=== PATIENT | male | born 1965 | race Caucasian/White ===

== ENCOUNTER 2017-08-14 05:36 | Emergency (ER) | payer OTHER ==
[~2017-08-14] VITALS: Ht 188 cm; Wt 136.0 kg
[~2017-08-14 05:36] MED LIST: GABA300C3 PO; LISI-587 PO; METH750T2 PO; NAPR500 PO
[2017-08-14 05:42] VITALS: BP 190/95; PULSE 77; RESP 18; TEMP 97.8; O2SAT 18; O2SAT 95
[2017-08-14] MEDS ORDERED: BLOOD PRESSURE MEDS PO (06:35)
[2017-08-14 06:39] VITALS: BP 183/110; PULSE 72; RESP 20; O2SAT 98
[2017-08-14 06:41] LABS: BASOPHIL # 0.1 TH/MM3 (0-0.2); EOSINOPHIL # 0.4 TH/MM3 (0-0.4); EOSINOPHIL % 5.6 % (0.0-4.0); HEMATOCRIT 45.2 % (39.0-51.0); HEMOGLOBIN 14.5 GM/DL (13.0-17.0); LYMPH % 33.1 % (9.0-44.0); LYMPHOCYTE # 2.5 TH/MM3 (1.0-4.8); MEAN CELL VOLUME 92.4 FL (80.0-100.0); MEAN CORPUSCULAR HEMOGLOBIN 29.7 PG (27.0-34.0); MEAN CORPUSCULAR HGB CONC 32.2 % (32.0-36.0); MEAN PLATELET VOLUME 7.9 FL (7.0-11.0); MONO % 6.2 % (0.0-8.0); MONOCYTE # 0.5 TH/MM3 (0-0.9); NEUT % 53.1 % (16.0-70.0); PLATELET COUNT 249 TH/MM3 (150-450); RED BLOOD COUNT 4.89 MIL/MM3 (4.50-5.90); WHITE BLOOD COUNT 7.5 TH/MM3 (4.0-11.0)
--- NOTE | 2017-08-14 06:57 | RADRPT ---
EXAM DATE/TIME: 08/14/2017 06:39 [place] COMPARISON: CHEST SINGLE AP, March 04, 2015, 3:35. INDICATIONS : Cough, congestion, unable to to take a deep breath. MEDICAL HISTORY : Hypercholesterolemia. Hypertension Smoker. SURGICAL HISTORY : Umbilical hernia repair. ENCOUNTER: Initial ACUITY: 1 day PAIN SCORE: 0/10 LOCATION: chest FINDINGS: PA and lateral views of the chest demonstrate the lungs to be symmetrically aerated without evidence of mass, infiltrate or effusion. The cardiomediastinal contours are unremarkable. Osseous structure s are intact. CONCLUSION: No acute disease. Hansel Feliciano MD on August 14, 2017 at 6:53 Board Certified Radiologist. This report was verified electronically.
[2017-08-14 07:02] VITALS: BP 148/89; PULSE 69; RESP 18; O2SAT 93
[2017-08-14 07:06] LABS: CHLORIDE 105 MEQ/L (98-107); SODIUM (NA) 141 MEQ/L (136-145)
[2017-08-14 07:09] LABS: CALCIUM 8.5 MG/DL (8.5-10.1)
[2017-08-14 07:10] LABS: ALBUMIN 3.3 GM/DL (3.4-5.0); BLOOD UREA NITROGEN 11 MG/DL (7-18); GLUCOSE,RANDOM 106 MG/DL (74-106); LIPASE 204 U/L (73-393)
[2017-08-14 07:12] LABS: ALT (GPT) 28 U/L (12-78); AST (GOT) 18 U/L (15-37)
[2017-08-14 07:13] LABS: CREATININE 0.66 MG/DL (0.60-1.30); GLOMERULAR FILTRATION RATE 128 ML/MIN (>89)
[2017-08-14 07:14] LABS: TOTAL BILIRUBIN ADULT 0.3 MG/DL (0.2-1.0); TOTAL PROTEIN 7.1 GM/DL (6.4-8.2)
[2017-08-14 07:15] LABS: ALKALINE PHOSPHATASE 81 U/L (45-117)
[2017-08-14] MEDS ORDERED: RESP: ALBUTEROL 2.5 MG/IPRATROPIUM 0.5 MG NEB (SCH) NEB ONE (07:15)
[2017-08-14 07:18] LABS: TROPONIN I LESS THAN 0.02 NG/ML (0.02-0.05)
--- NOTE | 2017-08-14 07:18 | PD ---
HPI Chief Complaint: Respiratory Symptoms Time Seen by Provider: 07:10 Travel History International Travel<30 days: No Contact w/Intl Traveler<30days: No Traveled to known affect area: No History of Present Illness HPI 51-year-old male presents stating he woke up this morning at 5 AM with a stuffy nose and cough. He states this made it hard for him to breathe through his nose. He states that he has no other concurrent complaints including fever, chest pain, shortness of breath or other acute concerns. He denies any sick contacts that he is aware of. Quality is stuffy nose. Severity is limited to nasal congestion and cough. Duration is couple of hours. PFSH Past Medical History Depression: Yes Heart Rhythm Problems: No Cancer: No Cardiac Catheterization: No Cardiovascular Problems: Yes High Cholesterol: Yes Congestive Heart Failure: No Diabetes: No Diminished Hearing: No Glaucoma: No Hepatitis: No Hiatal Hernia: No Hypertension: Yes Inguinal Hernia: Yes (UMBILICAL WITH MESH) Respiratory: No Immunizations Current: Yes Thyroid Disease: No Tetanus Vaccination: Unknown Influenza Vaccination: No Past Surgical History Abdominal Surgery: Yes (Hernia w/ mesh) Cardiac Surgery: No Coronary Artery Bypass Graft: No Ear Surgery: No Endocrine Surgery: No Eye Surgery: No Genitourinary Surgery: No Gynecologic Surgery: No Oral Surgery: No Pacemaker: No Thoracic Surgery: No Other Surgery: Yes Social History Alcohol Use: No Tobacco Use: Yes (1.5 PPD) Substance Use: No Allergies-Medications (Allergen,Severity, Reaction): Coded Allergies: No Known Allergies (Verified Adverse Reaction, Unknown, 08/14/17) Reported Meds & Prescriptions Reported Meds & Active Scripts Active Zithromax Z-[place] (Azithromycin) 250 Mg Dspk 250 Mg PO DIRECTED 500 MG (2 tabs) day 1, then 1 tab days 2-5. Ventolin Hfa 18 GM Inh (Albuterol Sulfate) 90 Mcg/Act Aer 2 Puff INH Q4H PRN Prednisone 50 Mg Tab 50 Mg PO DAILY 5 Days Reported [Blood Pressure Meds] PO DAILY Review of Systems Except as stated in HPI: all other systems reviewed are Neg Physical Exam Narrative General: No apparent distress, well appearing ENT: Posterior oropharyngx clear without exudate or erythema, external auditory canals are normal. Bilateral TM clear, rhinorrhea Neck: Neck is supple, no meningeal signs, trachea is midline Cardiovascular: Regular rate and rhythm Lungs: No increased respiratory effort noted, CTA bilaterally Abdomen: Soft, NT, ND, no rebound or guarding Back: No step-offs, midline spine nontender, no CVA tenderness Extremities: No edema, no pain with rom of all joints Neuro: Awake, motor and sensation grossly intact, normal speech Data Data Last Documented VS Vital Signs Date Time Temp Pulse Resp B/P (MAP) Pulse Ox O2 Delivery O2 Flow Rate FiO2 08/14/17 08:09 08/14/17 07:45 64 18 96 Room Air 08/14/17 05:42 97.8 Orders Orders Electrocardiogram (08/14/17 06:06) Complete Blood Count With Diff (08/14/17 06:06) Comprehensive Metabolic Panel (08/14/17 06:06) Troponin I (08/14/17 06:06) Lipase (08/14/17 06:06) Chest, Pa & Lat (08/14/17 06:06) Influenzae A/B Antigen (08/14/17 07:04) Albuterol-Ipratropium Neb (Duoneb Neb) (08/14/17 07:15) Ed Discharge Order (08/14/17 07:53) Labs Laboratory Tests Test 08/14/17 06:20 08/14/17 06:50 White Blood Count 7.5 TH/MM3 Red Blood Count 4.89 MIL/MM3 Hemoglobin 14.5 GM/DL Hematocrit 45.2 % Mean Corpuscular Volume 92.4 FL Mean Corpuscular Hemoglobin 29.7 PG Mean Corpuscular Hemoglobin Concent 32.2 % Red Cell Distribution Width 14.0 % Platelet Count 249 TH/MM3 Mean Platelet Volume 7.9 FL Neutrophils (%) (Auto) 53.1 % Lymphocytes (%) (Auto) 33.1 % Monocytes (%) (Auto) 6.2 % Eosinophils (%) (Auto) 5.6 % Basophils (%) (Auto) 2.0 % Neutrophils # (Auto) 4.0 TH/MM3 Lymphocytes # (Auto) 2.5 TH/MM3 Monocytes # (Auto) 0.5 TH/MM3 Eosinophils # (Auto) 0.4 TH/MM3 Basophils # (Auto) 0.1 TH/MM3 CBC Comment DIFF FINAL Differential Comment Blood Urea Nitrogen 11 MG/DL Creatinine 0.66 MG/DL Random Glucose 106 MG/DL Total Protein 7.1 GM/DL Albumin 3.3 GM/DL Calcium Level 8.5 MG/DL Alkaline Phosphatase 81 U/L Aspartate Amino Transf (AST/SGOT) 18 U/L Alanine Aminotransferase (ALT/SGPT) 28 U/L Total Bilirubin 0.3 MG/DL Sodium Level 141 MEQ/L Potassium Level 4.0 MEQ/L Chloride Level 105 MEQ/L Carbon Dioxide Level 29.0 MEQ/L Anion Gap 7 MEQ/L Estimat Glomerular Filtration Rate 128 ML/MIN Troponin I LESS THAN 0.02 NG/ML Lipase 204 U/L MDM Medical Decision Making Medical Screen Exam Complete: Yes Emergency Medical Condition: Yes Medical Record Reviewed: Yes (past history confirmed) Interpretation(s) Last 24 hours Impressions Chest X-Ray 08/14/17605 Signed Impressions: Service Date/Time: Monday, August 14, 2017 06:39 - CONCLUSION: No acute disease. Hansel Feliciano MD CBC & BMP Diagram 08/14/17 06:20 08/14/17 06:50 Total Protein 7.1, Albumin 3.3 L, Calcium Level 8.5, Alkaline Phosphatase 81, Aspartate Amino Transf (AST/SGOT) 18, Alanine Aminotransferase (ALT/SGPT) 28, Total Bilirubin 0.3 Differential Diagnosis Influenza, pneumonia, allergies Narrative Course Physician prior to my arrival ordered protocol cardiac workup when he was told that the patient had a hard time breathing. He states he did not evaluate the patient and he was not told that the patient had any specific chest pain. Patient to me denies chest pain or complaints other than nasal congestion and cough. His vitals are stable here other than pulse ox of 93%. Patient does smoke cigarettes. No overt wheezing on exam but will try DuoNeb treatment to see if this improves his cough and oxygen saturation while awaiting lab work. Patient states he did not take his blood pressure medication this morning yet. On recheck pulse ox is 98%, patient states he is feeling better after breathing treatment. Advised smoking cessation. We will provide albuterol inhaler, prednisone, azithromycin prescriptions for likely bronchitis. Patient is in agreement to plan and supportive care with close follow-up. Given return instructions Diagnosis Primary Impression: Upper respiratory infection Qualified Codes: J06.9 - Acute upper respiratory infection, unspecified Patient Instructions: General Instructions Additional Instructions: return as needed, follow with primary thursday, albuterol as needed for shortness of breath, Claritin [id number] as needed for nasal congestion, Tylenol as needed for pain or fever, stop smoking Med/Other Pt SpecificInfo: Prescription(s) given Scripts Azithromycin (Zithromax Z-[place]) 250 Mg Dspk 250 MG PO DIRECTED for Infection, #1 DSPK 0 Refills 500 MG (2 tabs) day 1, then 1 tab days 2-5. Prov: Naina Berry MD 08/14/17 Albuterol 18 GM Inh (Ventolin Hfa 18 GM Inh) 90 Mcg/Act Aer 2 PUFF INH Q4H Y for SHORTNESS OF BREATH, #1 INHALER 0 Refills Prov: Naina Berry MD 08/14/17 Prednisone (Prednisone) 50 Mg Tab 50 MG PO DAILY for 5 Days, #5 TAB 0 Refills Prov: Naina Berry MD 08/14/17 Disposition: 01 DISCHARGE HOME Condition: Stable Naina Berry MD Aug 14, 2017 07:18
[2017-08-14 07:45] VITALS: BP 147/88; PULSE 64; RESP 18; O2SAT 96
[2017-08-14] MEDS ORDERED: VENTAER INH (07:56)
[2017-08-14] MEDS ORDERED: ZITHTAB PO (07:56)
[2017-08-14] MEDS ORDERED: PRED50 PO (07:56)
--- NOTE | 2017-08-14 22:37 | EKG ---
Date Performed: 08/14/2017 Time Performed: 06:11:20 PTAGE: 51 years EKG: Sinus rhythm NONSPECIFIC T-WAVE ABNORMALITY BORDERLINE ECG PREVIOUS TRACING : 02/01/2016 13.59 Compared to prior tracing no significant change DOCTOR: Narendra Messer Interpretating Date/Time 08/14/2017 22:36:18
== END 2017-08-14 08:10 | disposition home or self-care (01) ==
LOC: PHED 05:36
DX: J06.9 Acute upper respiratory infection, unspecified (principal); F32.9 Major depressive disorder, single episode, unspecified; E78.00 Pure hypercholesterolemia, unspecified; I10 Essential (primary) hypertension; R94.31 Abnormal electrocardiogram [ECG] [EKG]; F17.200 Nicotine dependence, unspecified, uncomplicated; Z79.899 Other long term (current) drug therapy
CPT/HCPCS: 71020; 80053; 83690; 84484; 85025; 87804; 93005; 94664